=== PATIENT | male | born 1925 | race African-American/Black ===

== ENCOUNTER 2017-08-18 10:11 | Emergency (ER) | payer MEDICARE, MEDICAID ==
[~2017-08-18] VITALS: Ht 175.3 cm; Wt 75.0 kg
[2017-08-18] MEDS ORDERED: RAMI2.5C10 PO (10:20)
[2017-08-18] MEDS ORDERED: AMLO2.5T45 PO (10:20)
[2017-08-18] MEDS ORDERED: ROSU5TAB PO (10:20)
[2017-08-18] MEDS ORDERED: CLON-457 PO (10:20)
[2017-08-18] MEDS ORDERED: ASPI-986 PO (10:20)
[2017-08-18 10:44] VITALS: BP 163/74
== END 2017-08-18 12:43 | disposition home or self-care (01) ==
LOC: ER 11:18
DX: M25.522 Pain in left elbow (principal); M79.89 Other specified soft tissue disorders; Z79.82 Long term (current) use of aspirin
CPT/HCPCS: 99281; 99283